=== PATIENT | female | born 2005 | race Caucasian/White ===

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

== ENCOUNTER 2023-09-17 20:52 | Emergency (ER) | payer SELFPAY ==
[2023-09-17 21:23] LABS: BASOPHILS PERCENT AUTO 0.5 % (0.0-1.0); EOSINOPHILS PERCENT AUTO 5.6 % (1.0-3.0); HEMATOCRIT 38.6 % (37.0-47.0); LYMPHOCYTES PERCENT AUTO 28.9 % (20.5-50.1); MEAN CORPUSCULAR HEMOGLOBIN 27.3 pg (27.0-34.0); MEAN CORPUSCULAR HGB CONC 33.7 g/dL (33.0-35.0); MEAN CORPUSCULAR VOLUME 80.9 fL (80-100); MONOCYTES PERCENT AUTO 6.9 % (2-8); NEUTROPHILS PERCENT AUTO 58.1 % (42.2-75.2); PLATELET COUNT,PLT 301 10^3/uL (150-450); RED BLOOD CELL COUNT 4.77 10^6/uL (4.2-5.4); WHITE BLOOD CELL COUNT,WBC 11.1 10^3/uL (5.0-10.0)
[2023-09-17] MEDS: Sodium Chloride 0.9% 10 ML Syringe FLUSH PRN (21:29)
[2023-09-17 21:41] LABS: A/G RATIO 0.9; ALBUMIN 3.7 g/dL (3.4-5.0); ANION GAP 11.2 mEq/L (7-13); BILIRUBIN TOTAL 0.6 mg/dL (0.2-1.0); BUN/CREATININE RATIO 7.7 (No establ ref range); CREATININE 0.78 mg/dL (0.55-1.02); EST CRCL DRUG DOSING (CG) 128.59 mL/min; POTASSIUM,K 4.2 mmol/L (3.5-5.1); PROTEIN TOTAL,TP 7.6 g/dL (6.4-8.2)
[2023-09-17 21:48] LABS: APPEARANCE,URINE CLEAR (CLEAR); BILIRUBIN,URINE NEGATIVE (NEGATIVE); COLOR,URINE YELLOW (YELLOW); GLUCOSE,URINE NEGATIVE (NEGATIVE); KETONES,URINE NEGATIVE (NEGATIVE); LEUKOCYTE ESTERASE,URINE NEGATIVE (NEGATIVE); NITRITE,URINE NEGATIVE (NEGATIVE); OCCULT BLOOD,URINE NEGATIVE (NEGATIVE); PH,URINE 5.5 (5.0-9.0); PROTEIN,URINE NEGATIVE (NEGATIVE); UROBILINOGEN,URINE 0.2 mg/dL (0.2-1.0)
[2023-09-17] MEDS: Sodium Chloride 0.9% 1,000 ML IV ONE (21:54)
[2023-09-17] MEDS: Ondansetron 4 MG/2 ML SDV IVPUSH ONE (21:54)
[2023-09-17] MEDS: Morphine 4 MG/ML Syringe IVPUSH ONE (21:54)
[2023-09-17] MEDS: Iopamidol 612 MG/ML 100 ML Bottle IVPUSH ONE (22:13)
[2023-09-17] MEDS: HYDROmorphone 1 MG/ML Syringe IVPUSH ONE (22:53)
[2023-09-18] MEDS: Ondansetron 4 MG/2 ML SDV IVPUSH ONE (00:11)
[2023-09-18] MEDS: Ketorolac 30 MG/ML SDV IVPUSH ONE (00:11)
[2023-09-18] MEDS: HYDROmorphone 1 MG/ML Syringe IVPUSH ONE (00:58)
[2023-09-18] MEDS: HYDROmorphone 1 MG/ML Syringe ONE (02:24)
[2023-09-18] MEDS: Promethazine 25 MG/ML SDV IM ONE (02:26)
== END 2023-09-18 03:36 | disposition home or self-care (01) ==
LOC: DL.ED 20:52
DX: N83.202 Unspecified ovarian cyst, left side (principal); Z88.2 Allergy status to sulfonamides
CPT/HCPCS: 36415; 74177; 76856; 80053; 81003; 81025; 85025; 96372; 96374; 96375; 96376; 99284; J1170; J1885; J2270; J2405; J2550; J3490; J7030; Q9967